=== PATIENT | male | born 1975 | race Caucasian/White ===

== ENCOUNTER 2022-07-04 09:27 | Emergency (ER) | payer OTHER, SELFPAY ==
[2022-07-04 09:32] VITALS: BP 98/71; PULSE 84; RESP 14; TEMP 35.8; O2SAT 100; BMI 23.8
--- NOTE | 2022-07-04 10:25 | ED.GENADULT ---
HPI - General Adult General Time Seen by Provider: 10:25 Date Seen: 07/04/22 Chief complaint: Post Op Complication Stated complaint: Post bladder removal leaking from tube Time Seen by Provider: 07/04/22 10:24 Source: patient and RN notes reviewed Mode of arrival: ambulatory Limitations: no limitations History of Present Illness HPI narrative: Patient is a 46-year-old male here with concern of lower extremity edema, low temperature overnight and chills. Patient had his bladder removed and significant lymph node dissection for paraganglioma at [facility]. He was hospitalized June 26 through July 02. Overnight he was chilling, had lower temperatures around 94 to 95. No fever noted. Abdominal pain is baseline, just taking Tylenol. Does try to walk. He has no headache, no sore throat, no neck symptoms such as difficulty swallowing, no respiratory symptoms. His notes that his oral intake for fluids was down yesterday but overall he feels his appetite is increased seen in getting better. The were concerned about the lower extremity edema that has started, his states that is actually better today than it was yesterday. He is not short of breath, no chest pain. He is on Lovenox 40 mg daily. His believes his systolic blood pressures usually around 115-120. Related Data Home Medications Medication Instructions Recorded Confirmed enoxaparin 40 mg/0.4 mL mg 07/04/22 subcutaneous syringe Previous Rx's Medication Instructions Recorded apixaban 5 mg tablet (Eliquis) 10 mg PO BID #60 tabs 07/04/22 Allergies Allergy/AdvReac Type Severity Reaction Status Date / Time Penicillins Allergy Unknown Verified 07/04/22 09:39 Review of Systems Status of ROS: Reports: 10 or more systems reviewed and unremarkable except as noted in History and below [facility] Social History Smoking Status: Former smoker Do you use any of these nicotine containing products: Smokeless Tobacco How often do you have a drink containing alcohol: monthly or less AUDIT-C Alcohol total score: 1 Non-prescribed substance use: denies use Exam Const: Vital Signs, click to edit/add: Vital Signs - 24 hr 07/04/22 09:32 07/04/22 12:10 07/04/22 12:52 Temperature 96.5 F L Pulse Rate [Pulse Oximeter] 84 69 63 Respiratory Rate 14 Blood Pressure [Ri ght Upper Arm] 98/71 115/78 Pulse Oximetry 100 98 100 Oxygen Delivery Me thod Room Air Room Air Room Air Documenting provider has reviewed patient's vital signs: yes Common normals: no apparent distress, oriented x3, no limitations and alert General appearance: cooperative, comfortable, well kempt and frail appearing Nutritional appearance: underweight HENMT: Common normals: normocephalic, head/scalp atraumatic, hearing grossly normal bilaterally, external nose normal, nasal mucous membranes and turbinates normal, moist oral mucous membranes, oropharynx normal, dentition normal and gingiva normal Head and scalp: normocephalic and atraumatic Nose: external nose normal and nasal mucous membranes and turbinates normal Eye: Common normals: PERRL, EOMs intact bilaterally, conjunctivae normal and no scleral icterus Conjunctiva: conjunctiva(e) normal Pupil: PERRL Neck & C-Spine: Common normals: full ROM, no lymphadenopathy, supple, no meningeal signs, no JVD and thyroid normal Thyroid: thyroid normal Chest: Common normals: inspection of chest normal and palpation of chest normal Resp: Common normals: normal respiratory effort, no retractions, no use of accessory muscles and clear to auscultation bilaterally Auscultation: clear to auscultation bilaterally Cardio: Common normals: no JVD, regular rate, regular rhythm, S1 normal heart sound, S2 normal heart sound, no gallops, no clicks and no murmurs Rate: regular rate Rhythm: regular rhythm Heart sounds: S1 normal and S2 normal GI: Other: Has midline incision that looks to be well healing without any evidence of any ecchymosis erythema or drainage. The ostomy for the bladder contain some darker looking clear urine. Overall abdomen is mildly tender but nothing out of what I would expect for this type of surgery. Extremity: Other: Has a doughy significant bilateral symmetric about 3+ edema to both lower extremities. This seems to be most consistent with lymphedema from what I am seeing. Neuro: Common normals: oriented x3 Sensorium/orientation: alert Meningeal signs: no meningeal signs Psych: Appearance: well kempt Course Course Hospital Course: We will consider infectious etiology with a low temperature and the chills overnight. The lower extremity edema I believe is most certainly lymphedema, he is on DVT prophylaxis with Lovenox. We will do Doppler ultrasound of both of his lower extremities, will get a chest x-ray but do not feel that this is congestive heart failure. His blood pressure is actually a little low and will give him a 500 mL fluid bolus. He will be watched closely and will be on pulse oximetry. Reviewed with them that if this is lymphedema, I would recommend compression stockings with Rodriguez hose and elevation. I would not use diuretics at this point in his postoperative status but could be considered down the road. Reevaluation(s) Reevaluation #1: Reviewed with patient that the preliminary ultrasound is showing findings of DVT. Will await the Radiology over-read at this point per technician trainee request. He is hemodynamically stable. Time: 12:25 Reevaluation #2: Did review with patient the bilateral lower extremity DVT as well as a superficial DVT extending to the deep junction on the right thigh. At this time anticoagulation should be considered. I have contacted his urology service Dr. Mariano at [facility] [phone]. They have requested Eliquis. Urology will not be following this but they will contact the patient later, patient will ask for vascular consult to be placed. Time: 13:15 Vital Signs Vital signs: Initial Vital Signs Temperature 96.5 F L 07/04/22 09:32 Temperature Source Temporal Artery Scan 07/04/22 09:32 Pulse Rate 84 07/04/22 09:32 Pulse Rhythm 07/04/22 09:32 Respiratory Rate 14 07/04/22 09:32 Blood Pressure 98/71 07/04/22 09:32 Blood Pressure Mean 80 07/04/22 09:32 Blood Pressure Position Sitting 07/04/22 09:32 Pulse Oximetry 100 07/04/22 09:32 Oxygen Delivery Method 07/04/22 09:32 Vital Signs Temperature 96.5 F L 07/04/22 09:32 Pulse Rate 84 07/04/22 09:32 Respiratory Rate 14 07/04/22 09:32 Blood Pressure 98/71 07/04/22 09:32 Pulse Oximetry 100 07/04/22 09:32 Oxygen Delivery Method 07/04/22 09:32 Temperature 96.5 F L 07/04/22 09:32 Pulse Rate 63 07/04/22 12:52 Respiratory Rate 14 07/04/22 09:32 Blood Pressure 115/78 07/04/22 12:52 Pulse Oximetry 100 07/04/22 12:52 Oxygen Delivery Method 07/04/22 12:52 Medical Decision Making Lab Data Labs: Lab Results 07/04/22 07/04/22 07/04/22 Range/Units 11:38 11:38 11:38 WBC 9.17 (4.50-11.00) K/uL RBC 3.62 L (4.30-5.90) m/uL Hgb 10.4 L (13.5-17.5) gm/dL Hct 31.9 L (37.0-53.0) % MCV 88 (80-100) fL MCH 29 (26-34) pg MCHC 33 (32-36) gm/dL RDW Coeff of Cyndie 14.3 (11.5-15.5) % Plt Count 363 (140-440) K/uL Neut % (Auto) 84.5 H (42.0-72.0) % Lymph % (Auto) 10.7 L (20-44) % [place] % (Auto) 4.1 (0.0-11.0) % Eos % (Auto) 0.2 (0.0-7.0) % Baso % (Auto) 0.3 (0.0-3.0) % Neut # (Auto) 7.70 H (1.7-7.0) K/uL Lymph # (Auto) 1.00 (0.90-2.90) K/uL [place] # (Auto) 0.40 (0.00-0.90) K/UL Eos # (Auto) 0.02 (0.00-0.50) K/uL Baso # (Auto) 0.03 (0.00-0.30) K/uL Abs Immat Gran (auto) 0.02 (0.00-0.30) K/uL D-Dimer Quant (PE/DVT) 5.49 H (0.00-0.50) ug/ml Sodium 133 L (135-149) mmol/L Potassium 4.2 (3.6-5.1) mmol/L Chloride 103 (96-114) mmol/L Carbon Dioxide 26 (20-32) mmol/L BUN 17 (5-24) mg/dL Creatinine 1.1 (0.5-1.5) mg/dL Estimated Creat Clear 63.42 Estimated GFR 83 ml/min Glucose 117 H (60-115) mg/dL Lactate (0.5-1.9) mmol/L Calcium 7.9 L (8.4-10.6) mg/dL Total Bilirubin < 0.1 L (0.1-1.5) mg/dL AST 25 (12-35) U/L ALT 18 (4-50) U/L Alkaline Phosphatase 117 (40-150) U/L Total Protein 5.0 L (6.0-8.3) g/dL Albumin 2.3 L (3.3-5.0) g/dL Procalcitonin (<0.50) ng/mL 07/04/22 07/04/22 Range/Units 11:38 11:38 WBC (4.50-11.00) K/uL RBC (4.30-5.90) m/uL Hgb (13.5-17.5) gm/dL Hct (37.0-53.0) % MCV (80-100) fL MCH (26-34) pg MCHC (32-36) gm/dL RDW Coeff of Cyndie (11.5-15.5) % Plt Count (140-440) K/uL Neut % (Auto) (42.0-72.0) % Lymph % (Auto) (20-44) % [place] % (Auto) (0.0-11.0) % Eos % (Auto) (0.0-7.0) % Baso % (Auto) (0.0-3.0) % Neut # (Auto) (1.7-7.0) K/uL Lymph # (Auto) (0.90-2.90) K/uL [place] # (Auto) (0.00-0.90) K/UL Eos # (Auto) (0.00-0.50) K/uL Baso # (Auto) (0.00-0.30) K/uL Abs Immat Gran (auto) (0.00-0.30) K/uL D-Dimer Quant (PE/DVT) (0.00-0.50) ug/ml Sodium (135-149) mmol/L Potassium (3.6-5.1) mmol/L Chloride (96-114) mmol/L Carbon Dioxide (20-32) mmol/L BUN (5-24) mg/dL Creatinine (0.5-1.5) mg/dL Estimated Creat Clear Estimated GFR ml/min Glucose (60-115) mg/dL Lactate 0.6 (0.5-1.9) mmol/L Calcium (8.4-10.6) mg/dL Total Bilirubin (0.1-1.5) mg/dL AST (12-35) U/L ALT (4-50) U/L Alkaline Phosphatase (40-150) U/L Total Protein (6.0-8.3) g/dL Albumin (3.3-5.0) g/dL Procalcitonin 0.21 (<0.50) ng/mL Imaging Data Venous US: Attestation: I have reviewed the pertinent imaging results. Radiologist's impression: Patient: [facility] Facility:[facility] Patient ID:?[id number] Site Patient ID:?[id number]. Site :?[id number] Study:?US Extremity Bilateral -07/04/2022 12:39:03 PM Ordering Physician:Abdulaziz Posey Final Report: INDICATION: BILAT EDEMA, RECENT MAJOR SURGERY COMPARISON: none TECHNIQUE: A compression venous ultrasound exam was performed of both lower extremities using waggoner scale imaging, color Doppler and spectral Doppler analysis. FINDINGS: Occlusive hypoechoic clot is present within the right greater saphenous vein within the right thigh and proximal right calf extending into the saphenofemoral junction. Patent left GSV. Absent flow within the right GSV. Hypoechoic clot also located within the peroneal veins and posterior tibial veins bilaterally with lack of normal flow. Popliteal veins and femoral veins are patent bilaterally as are the visualized deep femoral veins. IMPRESSION: Positive DVT within the peroneal veins and posterior tibial veins bilaterally. Occlusive clot also within the right greater saphenous vein extending to the right saphenofemoral junction. Preliminary report provided to Dr. Godoy by the editing internship. Dictated by Christiano Stone MD @ 07/04/2022 12:48:05 PM (Electronic Signature) Chest x-ray: Attestation: I have reviewed the pertinent imaging results. Radiologist's impression: Patient: [facility] Facility:[facility] Patient ID:?[id number] Site Patient ID:?[id number]. Site :?[id number] Study:?XRay Chest Portable 1 View-07/04/2022 12:50:04 PM Ordering Physician:Abdulaziz Posey Final Report: INDICATION: Edema TECHNIQUE: Chest 1 view COMPARISON: None FINDINGS: Cardiovascular and mediastinum: Mild tortuosity of the descending thoracic aorta. Cardiac silhouette is upper limits of normal. Lungs and pleural spaces: Lungs are clear. No sign of infiltrate or mass. No sign of pleural effusion. No pneumothorax. Bones and soft tissues: Right Port-A-Cath is present. Degenerative changes. IMPRESSION: No acute findings. Dictated by Christiano Stone MD @ 07/04/2022 12:54:59 PM (Electronic Signature) Critical Care Time Critical Care Time Critical Care Time: No Discharge Plan Discharge Clinical Impression: Acute deep vein thrombosis (DVT) of both lower extremities, Edema, peripheral Patient Disposition: Home, Self-Care Condition: Stable Instructions: Deep Vein Thrombosis (ED), Leg Edema (ED) Additional Instructions: You will be on Eliquis for treatment of the DVTs. For the 1st week you take 10 mg twice a day, after that it will be 5 mg twice a day. Minimum treatment requirement for this is 3 months but should be further evaluated given your underlying cancer history. Ask your urologist to put through a vascular consult at [facility] for you. They will be able to help assist to in treatment and management of this. Do recommend wearing the compression stockings that we have provided, may come off at night. Elevating the legs can help decrease the swelling as well. Stop the Lovenox. Should you develop any sudden chest pain, shortness of breath, difficulty breathing, please seek re-evaluation as this could be symptoms of a pulmonary embolus. Tylenol is pain management of choice while on blood thinners, avoidance of NSAIDs is recommended. Activity Detail: Continue activity restrictions as per your surgeon's recommendations. Prescriptions: New Eliquis 5 mg tablet 10 mg PO BID Qty: 60 2RF Rx Instructions: Need to take 10mg twice daily for total of 13more doses (next dose tonight), then will be on 5mg twice daily after that No Action enoxaparin 40 mg/0.4 mL syringe Stand Alone Forms: MyHealth Info Instructions
--- NOTE | 2022-07-04 10:37 | CRLHL7_ITS ---
For Patients: As a result of the Century Cures Act, medical imaging exams and procedure reports are released immediately into your electronic medical record. You may view this report before your referring provider. If you have questions, please contact your health care provider. INDICATION: Edema TECHNIQUE: Chest 1 view COMPARISON: None FINDINGS: Cardiovascular and mediastinum: Mild tortuosity of the descending thoracic aorta. Cardiac silhouette is upper limits of normal. Lungs and pleural spaces: Lungs are clear. No sign of infiltrate or mass. No sign of pleural effusion. No pneumothorax. Bones and soft tissues: Right Port-A-Cath is present. Degenerative changes. IMPRESSION: No acute findings. Dictated by Christiano Stone MD @ 07/04/2022 12:54:59 PM (Electronically Signed)
--- NOTE | 2022-07-04 10:45 | CRLHL7_ITS ---
For Patients: As a result of the Cures Act, medical imaging exams and procedure reports are released immediately into your electronic medical record. You may view this report before your referring provider. If you have questions, please contact your health care provider. INDICATION: BILAT EDEMA, RECENT MAJOR SURGERY COMPARISON: none TECHNIQUE: A compression venous ultrasound exam was performed of both lower extremities using waggoner scale imaging, color Doppler and spectral Doppler analysis. FINDINGS: Occlusive hypoechoic clot is present within the right greater saphenous vein within the right thigh and proximal right calf extending into the saphenofemoral junction. Patent left GSV. Absent flow within the right GSV. Hypoechoic clot also located within the peroneal veins and posterior tibial veins bilaterally with lack of normal flow. Popliteal veins and femoral veins are patent bilaterally as are the visualized deep femoral veins. IMPRESSION: Positive DVT within the peroneal veins and posterior tibial veins bilaterally. Occlusive clot also within the right greater saphenous vein extending to the right saphenofemoral junction. Preliminary report provided to Dr. Godoy by the detail technician. Dictated by Christiano Stone MD @ 07/04/2022 12:48:05 PM (Electronically Signed)
[2022-07-04] MEDS: 0.9 % SODIUM CHLORIDE 500 ML 500 ML IV (11:45)
[2022-07-04] MEDS: ACETAMINOPHEN 500 MG TABLET PO (11:50)
[2022-07-04 11:53] LABS: Lactate* 0.6 mmol/L (0.5-1.9)
[2022-07-04 11:56] LABS: Basophils Absolute Auto 0.03 K/uL (0.00-0.30); Basophils Percent Auto 0.3 % (0.0-3.0); Eosinophils Absolute Auto 0.02 K/uL (0.00-0.50); Eosinophils Percent Auto 0.2 % (0.0-7.0); Hematocrit 31.9 % (37.0-53.0); Hemoglobin* 10.4 gm/dL (13.5-17.5); Immature Granulocytes Abs Auto 0.02 K/uL (0.00-0.30); Lymphocytes Percent Auto 10.7 % (20-44); Mean Corpuscular HGB Conc 33 gm/dL (32-36); Mean Corpuscular Hemoglobin 29 pg (26-34); Mean Corpuscular Volume 88 fL (80-100); Monocytes Percent Auto 4.1 % (0.0-11.0); Neutrophils Percent Auto 84.5 % (42.0-72.0); Platelet Count* 363 K/uL (140-440); RDW Coefficient of Variation % 14.3 % (11.5-15.5); Red Blood Count 3.62 m/uL (4.30-5.90); White Blood Count* 9.17 K/uL (4.50-11.00)
[2022-07-04 11:58] LABS: Slide Review Reflex No
[2022-07-04 12:10] VITALS: PULSE 69; O2SAT 98
[2022-07-04 12:17] LABS: Albumin* 2.3 g/dL (3.3-5.0); Chloride* 103 mmol/L (96-114); Potassium* 4.2 mmol/L (3.6-5.1); Sodium* 133 mmol/L (135-149)
[2022-07-04 12:20] LABS: Alanine Aminotransferase* 18 U/L (4-50); Alkaline Phosphatase* 117 U/L (40-150); Aspartate Amino Transferase* 25 U/L (12-35); Blood Urea Nitrogen* 17 mg/dL (5-24); Calcium* 7.9 mg/dL (8.4-10.6); Carbon Dioxide* 26 mmol/L (20-32); Creatinine* 1.1 mg/dL (0.5-1.5); Est. Creatinine Clearance* 63.42; Estimated Glomerular Filt Rate 83 ml/min; Glucose* 117 mg/dL (60-115)
[2022-07-04 12:25] LABS: D Dimer Quantitative* 5.49 ug/ml (0.00-0.50)
[2022-07-04 12:32] LABS: Bilirubin Total* < 0.1 mg/dL (0.1-1.5)
[2022-07-04 12:36] LABS: Procalcitonin* 0.21 ng/mL (<0.50)
[2022-07-04 12:52] VITALS: BP 115/78; PULSE 63; O2SAT 100
[2022-07-04 13:00] VITALS: BP 120/80; PULSE 66; O2SAT 100
--- NOTE | 2022-07-04 13:13 | ED.NURSE ---
dr stevenson was in to see and will call urologist at [facility]. does have dvt. dr stevenson is requesting gardenia yeisone. thigh high if possible.
[2022-07-04 13:30] VITALS: BP 119/77; PULSE 64; O2SAT 99
[2022-07-04] MEDS: APIXABAN 5 MG TABLET 10 MG PO (13:59)
[2022-07-04] MEDS: HEPARIN 500 UNIT/5 ML SYRINGE IVF (14:00)
--- NOTE | 2022-07-04 15:00 | ED.NURSE ---
was needing extra pads for drainage from left side abdominal- open hole. this is urine and is draining continuously. tylenol has helped the pain.
== END 2022-07-04 14:25 | disposition home or self-care (01) ==
PROVIDERS: Emergency Provider Family Medicine
DX: I82.491 Acute embolism and thrombosis of other specified deep vein of right lower extremity (principal); R60.0 Localized edema; Z98.890 Other specified postprocedural states
CPT/HCPCS: 36415; 71045; 80053; 81001; 83605; 84145; 85025; 85379; 87040; 87086; 93970; 96360; 99284; 99285; A9270; J1642; J7120